=== PATIENT | female | born 1995 | race African-American/Black ===

== ENCOUNTER 2018-12-02 05:44 | Day surgery (SDC) | payer OTHER ==
[~2018-12-02] VITALS: Ht 167.6 cm; Wt 63.6 kg
[2018-12-02 06:41] VITALS: Ht 167.6 cm; Wt 63.6 kg
[2018-12-02] MEDS ORDERED: NO ACTIVE MEDS (06:47)
[2018-12-02 07:00] VITALS: BP 125/78; PULSE 60; RESP 13
[2018-12-02] MEDS ORDERED: FENTAnyl 50 MCG/ML VIAL ONE (08:06)
[2018-12-02] MEDS ORDERED: MIDAZOLAM 1 MG/ML 2 ML INJ ONE ×2 (08:06)
[2018-12-02 08:25] VITALS: BP 110/73; PULSE 73; RESP 24
--- NOTE | 2018-12-02 14:40 | CONS ---
DATE OF ADMISSION: 12/02/2018 DATE OF CONSULTATION: PATIENT NAME: SAWYER LYONS Dear Dr. Allen: I thank you very much for this kind referral. HISTORY OF PRESENT ILLNESS: Ms. Sawyer Lyons is a 23-year-old female patient who has been referr ed to me for further evaluation of upper abdominal pain associated with bloating and nausea. She als o has chronic heartburn. Symptomatic medical therapy is not helping her. She is not taking any nons teroidal antiinflammatory agents. No history of gallstones or liver disease. Denies change in the b owel habit or rectal bleeding. No past history of inflammatory bowel disease. Not a hypertensive or diabetic. No heart disease, lung problem, or kidney disease. SOCIAL HISTORY: Nonsmoker. No alcohol abuse. FAMILY HISTORY: No family history of gastrointestinal tract neoplasm. ALLERGIES: NO DRUG ALLERGIES. MEDICATIONS: None. PHYSICAL EXAMINATION: VITAL SIGNS: She is 5 feet 6 inches tall and weighs 140 pounds. HEART: Normal heart sounds. LUNGS: Clear. ABDOMEN: Soft, no masses, normal bowel sounds. NEUROLOGIC: Normal neurological exam. IMPRESSION: 1. Upper abdominal pain associated with bloating and nausea. 2. Chronic heartburn. PLAN: 1. Omeprazole 40 mg p.o. q.a.m. 2. Endoscopic examination for further evaluation. The procedure and possible complications are well explained to the patient. She understands and cons ents to the procedure. I thank you once again. With warmest personal regards, Dictated By: RUBINA HAQ/NTS Conf#: [id number] DID#: [id number] CC: DR. ALLEN;*EndCC*
== END 2018-12-02 11:22 | disposition home or self-care (01) ==
LOC: GIL 05:44
PROVIDERS: ATTEND Internal Medicine Gastroenterology
DX: K21.9 Gastro-esophageal reflux disease without esophagitis (principal)
CPT/HCPCS: 43239; 84703; 88305; J2250; J3010; Z7610